=== PATIENT | male | born 1995 | race Caucasian/White ===

== ENCOUNTER 2022-11-01 14:59 | Emergency (ER) | payer OTHER, SELFPAY ==
--- NOTE | 2022-11-01 15:16 | ED.GENADULT ---
HPI - General Adult General Chief complaint: Wound/Laceration Stated complaint: Forearm lac work inj Time Seen by Provider: 11/01/22 16:49 Source: patient and RN notes reviewed Mode of arrival: ambulatory Limitations: no limitations History of Present Illness HPI narrative: This is a 26-year-old male presenting to the emergency department for evaluation of laceration to right forearm laceration which occurred today. Patient reports that while he was at work and accidentally lacerated his right forearm with nails from [employer]alil material. Patient reports that area bled immediately and he covered this with a bandage. He is unsure when his last tetanus was. Denies any fevers or chills. He is otherwise healthy. No other complaints or concerns at this time. MD complaint: Laceration Onset (ago): day(s) Radiation: non-radiation Severity: moderate Quality: aching Pain Consistency: constant Relieving factors: none Exacerbating factors: none Associated symptoms: denies other symptoms Treatments prior to arrival: none Related Data Allergies Allergy/AdvReac Type Severity Reaction Status Date / Time grape Allergy Facial Verified 11/01/22 15:17 Swelling orange Allergy Facial Verified 11/01/22 15:17 Swelling strawberry Allergy Facial Verified 11/01/22 15:17 Swelling Review of Systems Review of Systems: Yes all other systems are reviewed and are negative PMFSH Social History Social History Advance Directives: No Advance Directives Information Provided: Yes Physical Exam ED Vital Signs: Vital Signs - 24 hr 11/01/22 15:18 Temperature 98.3 F Pulse Rate 92 Respiratory Rate 18 Blood Pressure 111/63 Pulse Oximetry 100 Oxygen Delivery Method Room Air BMI result Body Mass Index 24.2 Const Other: General: Awake, alert, and oriented X3. No acute distress. HEENT: Normal inspection CVS: Normal heart rate and rhythm. Pulses normal. Respiratory: No respiratory distress Skin: There is a 4 cm partial-thickness laceration noted to the right forearm. No active bleeding or drainage. Range of motion of the right arm is full and intact. No surrounding erythema or edema. Neuro: Oriented X 3. No motor deficit. No sensory deficit. Course Course Course Narrative: This is an RME: Additional HPI, ROS, PE not included below will be deferred to primary provider. 26 year old male presenting with a forearm laceration when working with nails. Unsure when his last tetanus vaccine was. Rates his pain a 4/10 and describes it as throbbing. Plan: [facility] Medications Administered Discontinued Medications Generic Name Dose Route Start Last Admin Trade Name Bryce PRN Reason Stop Dose Admin Diphtheria/Tetanus/Acell Pertussis 0.5 ml 11/01/22 15:18 11/01/22 16:47 Diphth,Pertus(Acell),Tet Adult 0.5 Ml Syringe IM 11/01/22 15:19 0.5 ml .ONCE ONE Administration Lidocaine HCl 5 ml 11/01/22 18:09 11/01/22 18:16 Lidocaine Hcl 1 % Mpf 5 Ml Vial INFILTRATI 11/01/22 18:10 5 ml ONCE ONE Administration Procedures Laceration Laceration 1: Site: upper extremity Side (If applicable): right Size (cm): 4 Description: linear Depth: simple, single layer Local Anesthetic: lidocaine 1% Amount of anesthesia used (mL): 5 Pre-repair: wound explored, irrigated extensively and deep structures intact Skin layer closed with: nylon Size (cm): 4-0 Number of sutures: 7 Technique: simple, interrupted Medical Decision Making Medical Decision Making MDM Narrative: 26-year-old male presenting to the emergency department for evaluation of laceration to right forearm which occurred today. On arrival, all vital signs within normal limits. Patient has 4 cm laceration noted to right forearm which needs suture repair. Patient's tetanus was updated in department today. See procedure note for further details upon suture closure. Patient tolerated procedure well. Discussed good wound care instructions. Patient understands and agrees with plan. Patient stable for discharge. Differential Diagnosis Differential Diagnoses: The differential diagnosis associated with the presentation includes Laceration, abrasion, contusion Discharge Plan Discharge Clinical Impression: Laceration Patient Disposition: Home, Self-Care Instructions: Care For Your Stitches (ED), Laceration (ED) Additional Instructions: We repaired your wound with sutures. Please have sutures removed in 7-10 days. You may return or follow-up with your primary care physician. Please watch for any worsening signs and symptoms including but not limited to increased redness, swelling, drainage from the area. Sutures may get wet, pat dry. Do not scrub or pick at wound. If any new or worsening symptoms occur please return for re-evaluation. We updated your tetanus in the department today. Interventions: ED Discharge Assessment Last Done: 11/01/22 18:53 Discharge Date/Time: 11/01/22 18:54
[2022-11-01 15:18] VITALS: BP 111/63; PULSE 92; RESP 18; TEMP 36.8; O2SAT 100; BMI 24.2
[2022-11-01] MEDS: Diphth,Pertus(ACell),Tet Adult 0.5 ML SYRINGE IM (16:47)
[2022-11-01] MEDS: Lidocaine HCl 1 % MPF 5 ML VIAL INFILTRATI (18:16)
== END 2022-11-01 18:54 | disposition home or self-care (01) ==
PROVIDERS: Emergency Provider Emergency Medicine
DX: S51.811A Laceration without foreign body of right forearm, initial encounter (principal); S50.811A Abrasion of right forearm, initial encounter; W26.9XXA Contact with unspecified sharp object(s), initial encounter; Y93.9 Activity, unspecified; Y92.9 Unspecified place or not applicable; Y99.0 Civilian activity done for income or pay; Z23 Encounter for immunization
CPT/HCPCS: 12002; 90471; 90715; 99282; 99284